=== PATIENT | female | born 1955 | race African-American/Black ===

== ENCOUNTER → 2018-12-13 | Outpatient (CLI) | payer OTHER ==
--- NOTE | 2018-12-13 13:51 | CONS ---
Assessment/Plan Assessment/Plan Hospital Course (Demo Recall) This is a 63-year-old female presenting with bilateral greater trochanteric bursitis and IT band tendinitis. Her symptoms are worse on the left than her right. She does have a significant Trendelenburg gait. A hip abductor tear cannot be ruled out this time. Given that she has not trialed any conservative therapy we will begin with this. X-rays show minimal arthritis. There is likely a lumbar radiculopathy component as well as she has some of those symptoms and history. Plan: [facility] Physical therapy for bilateral greater trochanteric bursitis and IT band tendinitis and lumbar radiculopathy. Follow-up 12 weeks. If her symptoms are not improved we will likely obtain a lumbar spine MRI. Consultation Date/Type/Reason Admit Date/Time Date of Consultation: Dec 13, 2018 Reason for Consultation Bilateral hip pain. Date/Time of Note DATE: 12/13/18 TIME: 13:43 Hx of Present Illness This is a 63-year-old female who presents with a history of left worse than right hip pain. Patient states the pain is in the lateral aspect of the hip. The pain does radiate to the knee. At times she does have radiation past the knee. It is described as sharp at times and as a dull ache. The pain is rated as a 810/10 with activity and sleeping. Walking tolerance is limited to 1 block. No external support. The patient does admit to a limp. It is difficult to sleep on the affected side at night secondary to pain. There are symptoms to suggest referred pain from the back with radicular symptoms. Treatment to date has included activity modification. Duration: 3-4 years Injury: No Walking tolerance: 1 block Limp: Yes Support: No Stairs: Places both feet on a step before proceeding the next and uses banister Physical Therapy: No Injections: No NSAID's: No Prior surgery: No Back pain: Yes Knee pain: Yes Risk of AVN : No Patient denies fever, chills, shortness of breath, chest pain, nausea/vomiting, constipation, diarrhea, numbness, and tingling. Past Medical History Osteoarthritis Past Surgical History Hernia repair 6 Hysterectomy 1992 Family History Significant Family History: no pertinent family hx Social History Alcohol Use: occasionally (34 drinks a week) Smoking Status: Former smoker Drug Use: none Exam/Review of Systems Exam Vitals Weight: 197 pounds Height: 5 foot 4 inches Temperature: 90.6 Heart Rate: 74 Blood Pressure: 130/68 Respiratory Rate: 12 Exam General: Alert, oriented. Vital signs: Noted on the chart. Heart: Regular rate and rhythm. Lungs: No respiratory distress. No accessory muscle use. Musculoskeletal: Well developed female in no apparent distress. Gait demonstrates a significant Trendelenburg with antalgic components and no short leg component. Trendelenburg gait is worse on the left. Standing, the pelvis is level and supine there is no true leg length discrepancy. There is tenderness over trochanteric bursa and IT band Left worse than right. Positive Obers Test Range of motion: Flexion: 115 Extension: 0 Internal rotation: 20 External rotation: 45 Abduction: 45 Adduction: 10 Sitting there is no pelvic obliquity. Minimal to no pain at the extremes of motion of the affected hip. Skin was intact throughout both lower extremities. Sensation intact to light touch in a sural, saphenous, deep peroneal, superficial peroneal, medial and lateral plantar nerve distribution. Neurovascular exam showed 4/5 strength for the hip abductors and 5/5 strength in the quads, EHL/tibialis anterior/gastroc. Normal and symmetrical pulses were palpated in both the dorsalis pedis and posterior tibial arteries. There is no sign of venous stasis. Imaging Imaging The patient received a full set of films and personally reviewed by myself today in clinic including an AP pelvis and an AP and lateral of the affected hip. The hip is reduced. There is no significant loss of joint space. There is no osteophyte formation. There is no subchondral sclerosis. There are no subchondral cysts. There is no significant deformity of the the proximal femur, femoral neck, or acetabulum. The pelvis is in continuity. Bone quality radiographically: KRISTIN Daniel MD Dec 13, 2018 13:51
--- NOTE | 2018-12-13 17:09 | RADRPT ---
PROCEDURE: XR Pelvis and Hips. CLINICAL INDICATION: Pelvic pain. Bilateral hip pain. TECHNIQUE: Five views. Frontal pelvis. Frontal and lateral right hip. Frontal and lateral left h ip. COMPARISON: No prior studies are available for comparison. FINDINGS: There is no fracture or dislocation. The soft tissues are normal. Articular surfaces are intact. There is no lytic or blastic lesion. There is no radiopaque foreign body. IMPRESSION: 1. Unremarkable x-ray pelvis and bilateral hips. RPTAT: QQ .Francois Azar MD, MD Date Time Electronically viewed and signed by .Francois Azar MD, MD on 12/13/2018 17:09 .R/
== END | disposition home or self-care (01) ==
LOC: HKI 10:11
PROVIDERS: ATTEND Orthopaedic Surgery Adult Reconstructive Orthopaedic Surgery
DX: M70.62 Trochanteric bursitis, left hip (principal); M70.61 Trochanteric bursitis, right hip; Z90.710 Acquired absence of both cervix and uterus; Z87.891 Personal history of nicotine dependence
CPT/HCPCS: 73523; G0463

== ENCOUNTER → 2019-03-07 | Outpatient (CLI) | payer OTHER ==
--- NOTE | 2019-03-07 21:36 | CONS ---
Consult Date/Type/Reason Admit Date/Time Initial Consult Date Date/Time of Note DATE: 03/07/19 TIME: 21:31 Subjective 63-year-old female follows up 3 months for bilateral greater trochanteric bursitis and lumbar radiculopathy. She has been going to therapy diligently. Patient states the right is significantly better and for the most part resolved. Regards to the left it is improved but still causes some pain. She complains of significant pain radiating from her buttock on the left side down to her feet. She does states she has altered sensation on her right thigh. She would like to continue physical therapy as it has been helping. Objective Vitals Weight: 176 pounds Height: 5 feet 4 inches Temperature: 90.6 Heart Rate: 71 Blood Pressure: 122/58 Respiratory Rate: 12 Exam General: Alert, oriented. Vital signs: Noted on the chart. Heart: Regular rate and rhythm. Lungs: No respiratory distress. No accessory muscle use. Musculoskeletal: Well developed female in no apparent distress. Gait demonstrates a small- moderate Trendelenburg with no antalgic components and no short leg component. Trendelenburg gait is worse on the left. Standing, the pelvis is level and supine there is no true leg length discrepancy. There is tenderness over trochanteric bursa and IT band on the left. Range of motion: Flexion: 115 Extension: 0 Internal rotation: 20 External rotation: 45 Abduction: 45 Adduction: 10 Sitting there is no pelvic obliquity. Minimal to no pain at the extremes of mo tion of the affected hip. Skin was intact throughout both lower extremities. Sensation intact to light touch in a sural, saphenous, deep peroneal, superficial peroneal, medial and lateral plantar nerve distribution. Neurovascular exam showed 4/5 strength for the hip abductors and 5/5 strength in the quads, EHL/tibialis anterior/gastroc. Normal and symmetrical pulses were palpated in both the dorsalis pedis and posterior tibial arteries. There is no sign of venous stasis. Assessment/Plan Hospital Course (Demo Recall) 63-year-old female with significant improvement in bilateral greater trochante amadeo bursitis and lumbar radiculopathy after a course of physical therapy. I think the patient would benefit from continued physical therapy as she has had much success so far. If she continues to have significant lumbar radiculopathy after physical therapy she should see her primary care physician for further work-up and evaluation. Plan: Continued physical therapy for bilateral greater trochanteric bursitis and lumbar radiculopathy Follow-up. KRISTIN TOWNSEND MD March 07, 2019 21:36
== END | disposition home or self-care (01) ==
LOC: HKI 15:47
PROVIDERS: ATTEND Orthopaedic Surgery Adult Reconstructive Orthopaedic Surgery
DX: M70.62 Trochanteric bursitis, left hip (principal); M70.61 Trochanteric bursitis, right hip; M54.16 Radiculopathy, lumbar region
CPT/HCPCS: G0463